=== PATIENT | male | born 1960 | race Caucasian/White ===

== ENCOUNTER 2023-07-30 08:53 | Outpatient (REF) | payer OTHER, SELFPAY ==
[2023-07-30 12:33] LABS: Cholesterol 246 mg/dL (<200); HDL Cholesterol 53 mg/dL (>40); LDL Cholesterol Calculated 165 mg/dL (<100); Triglycerides 144 mg/dL (<150)
== END 2023-07-30 08:54 | disposition home or self-care (01) ==
LOC: HO.HHCL 08:53
PROVIDERS: Visit Provider Registered Nurse
DX: E78.5 Hyperlipidemia, unspecified (principal); E66.3 Overweight
CPT/HCPCS: 36415; 80061

== ENCOUNTER 2024-01-22 08:39 | Outpatient (REF) | payer OTHER, SELFPAY ==
[2024-01-22 11:51] LABS: Cholesterol 135 mg/dL (<200); HDL Cholesterol 44 mg/dL (>40); LDL Cholesterol Calculated 74 mg/dL (<100); Triglycerides 85 mg/dL (<150)
== END 2024-01-22 08:40 | disposition home or self-care (01) ==
LOC: HO.HHCL 08:39
PROVIDERS: Visit Provider Nurse Practitioner Family
DX: E78.5 Hyperlipidemia, unspecified (principal)
CPT/HCPCS: 36415; 80061

== ENCOUNTER → 2024-02-03 12:43 | Outpatient (REF) | payer OTHER, SELFPAY ==
--- NOTE | 2024-02-03 12:52 | CA_ITS ---
Transthoracic Echocardiogram Patient (Last, First, Middle): Mac Rodriges, Gender: Male Date of : 1960 Age: 63 Procedure Date: 02/03/2024 Procedure Type: Transthoracic Echocardiogram Location: OP Height: 167.64 cm Weight: 81.65 kg BSA: 1.91 m2 Heart Rate: bpm BP: 118 / 60 mmHg Undercollar Maker: Referring MD: Sydnee Dhillon MD Symptoms: SYNCOPAL EPISODES, Study Quality: Good ECG Rhythm: Sinus Conclusions: - The left ventricular systolic function is normal. The calculated ejection fraction is 59% by biplane method. - No obvious valvular pathology seen on this study. Findings Left Ventricle Normal left ventricular cavity size. There is normal left ventricular wall thickness. The left ventricular systolic function is normal. The calculated ejection fraction is 59% by biplane method. There is no evidence of regional wall motion abnormalities. Diastolic function is normal for age. Right Ventricle Mildly increased right ventricular cavity size. There is normal right ventricular systolic function. Atria Both atria are normal in size. Aortic Valve There is a normal trileaflet aortic valve. There is no aortic valve stenosis. There is trace (trivial) aortic valve regurgitation. Mitral Valve The mitral valve appears normal. There is trace mitral valve regurgitation. There is no mitral valve stenosis. Pulmonic Valve There is trace pulmonic valve regurgitation. Tricuspid Valve Normal tricuspid valve structure. There is trace tricuspid valve regurgitation. There is no evidence of pulmonary hypertension. Great Vessels The asc aorta is normal in size. Venous The inferior vena cava is normal in size and collapses greater than 50% with inspiration. Pericardium/Pleural There is no evidence of pericardial effusion. Prior Study Comparison No prior study available for comparison. Recommendations, Care & Conclusions No obvious valvular pathology seen on this study. Measurements 2D Linear Measurements IVSd: 1.01 0.6-0.9/0.6-1.0 cm LVIDd: 4.74 3.9-5.3/4.2-5.9 cm LVIDd Index: 2.48 2.4-3.2/2.2-3.1 cm/m2 LVIDs: 2.65 2.0-3.6 cm LVPWd: 1.08 0.7-1.1 cm Ao Root: 3.50 2.1-3.5 cm LA Diam: 3.20 2.7-3.8/3.0-4.0 cm LAIDs Index: 1.68 1.5-2.3 cm/m2 LV Mass: 220.60 67-162/88-224 g LV Mass Index: 115.50 43-95/49-115 g/m2 LVOT Diam: 2.30 3.0+(-)1.3 cm 2D Systolic Function EF 4C: 62.70 >55% EF 2C: 56.80 >55% EF BiP: 59.30 >55% Mitral Valve MV Pk E: 0.81 MV PK A: 0.72 MV Decel Time: 223.00 E/A: 1.10 E'Lateral: 12.40 E'Medial: 8.05 E/E' Med: 10.00 E/E' Lat: 6.50 PHT: 66.00 MVA PHT: 3.33 Decel [place]: 3.61 Aortic Valve AoV Pk Harvey: 1.65 AoV Mn Harvey: 0.95 AoV VTI: 0.38 AoV Pk Grad: 11.00 Aov Mn Grad: 5.00 CARLY Cont.VTI: 2.96 LVOT LVOT Pk Harvey: 1.23 LVOT Mn Harvey: 0.77 LVOT VTI: 0.27 LVOT Pk Grad: 6.00 LVOT Mn Grad: 3.00 LVOT Diam: 2.30 LVOT Area: 4.15 Diastolic Function MV Pk E: 0.81 MV Pk A: 0.72 E/A: 1.10 E'Medial: 8.05 E/E' Med: 10.00 E' Laterial: 12.40 E/E' Lat: 6.50 Right Ventricle TAPSE (mm): 27.00 Tricuspid Valve TR Pk Harvey: 2.32 TR Pk Grad: 22.00 RA Press: 3.00 RVSP: 25.00 Great Vessels Aorta Ao Root-2D: 3.50 2.0-3.7 cm Ao Asc: 3.40 2.1-3.4 cm Pulmonary Valve PV Pk Harvey: 0.99 Peak PV Grad: 4.00 Updated in Other Vendor System with Status of Final Curt Hernández MD electronically signed on 02/04/2024 11:43:33 AM with status of Final
--- NOTE | 2024-02-03 12:52 | HM_ITS ---
Conclusion: 1. Patient was monitored for total period of 1 day and 23 hours 2. Baseline was normal sinus rhythm with average heart of 71 beats per minute 3. No significant pauses noted 4. Rare PACs noted 5. Occasional PVCs noted with total burden of 0.5% 6. To supraventricular tachycardia episode noted, fastest at 150 beats per minute and longest at 11 beats 7. No patient reported events MTDD
== END ==
LOC: HO.CARD 12:43
PROVIDERS: PCP Nurse Practitioner Family; Visit Provider Internal Medicine
DX: R55 Syncope and collapse (principal)
CPT/HCPCS: 93225; 93306

== ENCOUNTER → 2024-02-03 12:52 | Outpatient (BNV) | payer OTHER, SELFPAY | PROVIDERS: PCP Nurse Practitioner Family; Visit Provider Internal Medicine | DX: R55 Syncope and collapse (principal) | CPT/HCPCS: 93227; 93306 ==

== ENCOUNTER 2024-06-17 09:22 | Outpatient (REF) | payer OTHER, SELFPAY ==
[2024-06-17 11:33] LABS: Cholesterol 188 mg/dL (<200); HDL Cholesterol 61 mg/dL (>40); LDL Cholesterol Calculated 106 mg/dL (<100); Triglycerides 105 mg/dL (<150)
== END 2024-06-17 09:23 | disposition home or self-care (01) ==
LOC: HO.HHCL 09:22
PROVIDERS: Visit Provider Nurse Practitioner Family
DX: E78.5 Hyperlipidemia, unspecified (principal)
CPT/HCPCS: 36415; 80061

== ENCOUNTER 2025-03-04 09:28 | Outpatient (REF) | payer OTHER, SELFPAY ==
--- OUTSIDE RECORDS SUMMARY | 2025-03-04 09:58 | XMS_ITS | Encounter Summary ---
Author Organization [employer] [facility] Address [address] [place] [address] Care Team Providers Care Senior Software Development Engineer Name Role Phone Steve Pugh Primary Care Provider Jose Manuel Bennett Primary Care Provider Tanya MarquisP Primary Care Provider [phone] Va Cannon NP Primary Care Provider [phone] Encounter Details Date Type Department Care Team (Latest Contact Info) Description 07/31/2022 Abstract [facility] CONVERSIONS Dental, Provider, DDS Social History Tobacco Use Types Packs/Day Years Used Date Smoking Tobacco: Never Assessed Sex and Gender Information Value Date Recorded Sex Assigned at Male 09/16/2022 10:32 AM EDT Legal Sex Male 10:32 AM EDT Gender Identity Male 09/16/2022 10:32 AM EDT Sexual Orientation Choose not to disclose 2021 10:32 AM EDT documented as of this encounter Plan of Treatment Upcoming Encounters Date Type Department Care Team ( st Contact Info) Description 03/04/2025 10:30 AM EDT Office Visit [facility] ADULT DENTAL [address] [place] [address] Sanders-Davila, Jolanta, DDS [address] [place] [address] documented as of this encounter Visit Diagnoses Not on filedocumented in this encounter Care Teams Senior Software Development Engineer Relationship Specialty Start Date End Date Steve Pugh FNP PCP - General Family Medicine 12/12/22 01/15/23 Jose Manuel Medina AGNP PCP - General Family Medicine 01/16/23 08/06/23 Tanya Allison FNP [address] [place] [address] PCP - General Family Medicine 08/07/23 07/19/24 Va Cannon NP [address] [place] [address] PCP - General Family Medicine 07/20/24 documented as of this encounter
--- OUTSIDE RECORDS SUMMARY | 2025-03-04 09:58 | XMS_ITS | Clinical Summary ---
Author Organization [employer] Address [address] [facility] [address] [place] [address] Care Team Providers Care Firearms Assembly Supervisor Name Role Phone Va Cannon DINO Primary Care Provider [phone] Allergies No known active allergies Medications amLODIPine (Norvasc) 5 MG tabletIndication s:Essential hypertension TAKE 1 TABLET BY MOUTH EVERY DAY 90 tablet 3 02/26/20 25 Active amLODIPine (Norvasc) 5 MG tabletIndication s:Essential hypertension TAKE 1 TABLET BY MOUTH EVERY DAY 90 tablet 3 03/17/20 24 025 Discontinued(Re order (will not trigger notification to Pharmacy)) rosuvastatin (Crestor) 10 MG tabletIndication s:Dyslipidemia Take 1 tablet (10 mg) by mouth Once per day. 30 tablet 11 03/17/20 24 025 Discontinued(Me d list cleanup (will not trigger notification to Pharmacy)) Active Problems Problem Noted Date Diagnosed Date Dental calculus 06/02/2024 Periodontal disease 06/02/2024 Missing teeth, acquired 06/02/2024 Generalized gingival recession 06/02/2024 Watery eyes 06/27/2023 Assessment & Plan (06/27/2023 1:03 PM EDT): Wears contacts sparingly, once every few months or so to read small print. Does not wear glasses. Reports this happens for a few months out of the year. DDx: seasonal allergies Patient was not interested in allergy medication. He was interested in a referral to optometry though. Acute pain of left shoulder 04/04/2023 Assessment & Plan (04/04/2023 11:50 AM EDT): It seems like patient irritated his supraspinatus and subscapularis muscle due to exam findings. No trauma reported, he slept on it wrong. Instructed OTC NSAIDs and cyclobenzaprine 10 days flexeril, instructed patient to take them 3 times a day PRN. Essential hypertension 03/05/2023 Assessment & Plan (02/25/2025 2:22 PM EDT): -BP at target goal of <130/80 mmHg -continue amlodipine 5 mg -microalbumin: ordered today -ASCVD risk: 10.5 % based on lipid levels obtained in 2022 -daily BP monitoring advised -low salt diet and 30 min moderate intensity daily exercise recommended -Reviewed ED precautions to include chest pain, shortness of breath, severe headache, sudden vision changes or BP >=180/>=120 mmHg. -Call clinic if three or more BP readings >130/80 mmHg. -referral for eye exam placed -follow-up 4 months Assessment & Plan (06/27/2023 12:58 PM EDT): 138/90 before leaving, Counseled low-salt diet, advised increase in exercise to 30 min/ day most days, weight loss if applicable. Call clinic for high BP >170/90 or low <90/60. Assessment & Plan (04/16/2023 2:02 PM EDT): Patients home blood pressure readings are inside of JNC 8 guideline: recommendation 1; a corollary recommendation is that patients whose achieved SBP on pharmacologic therapy is lower than the new guideline recommendation can be continued at that level of therapy , if well tolerated for his age group >60. Although I do have concerns about his diastolic BP, he does fall within JNC-8 guidelines. He and his are interested in improving their lifestyles (diet, exercise) so we discussed meeting in 3 months to review his BP and also his lipid panel ( as of 03/13 his LDL was 207). Discussed diet and exercise and gave DASH diet handout. Continue to monitor blood pressure 2 or 3 times a week F/up 3 months for HTN Assessment & Plan (03/05/2023 4:18 PM EDT): Patient requested a refill of his amlodipine. Blood pressure was 143/96 when he got here and is now 151/99. He was requesting to stop taking his BP medication because he does not like taking meds. We talked about how chronic elevated blood pressure can be very dangerous. He acknowledge and said he understood. I gave patient a BP log he is to return in 2 weeks for a BP check and a potential increase in amlodipine. Routine adult health maintenance 03/05/2023 Dyslipidemia 11/11/2018 Assessment & Plan (02/25/2025 2:23 PM EDT): -patient self discontinued crestor. Reports he is managing with lifestyle and dietary changes. -repeat labs ordered today Assessment & Plan (04/04/2023 12:14 PM EDT): Component Ref Range & Units 2 wk ago 1 yr ago Cholesterol, Total <200 mg/dL 294??High?? 265??High?? HDL Cholesterol > OR = 40 mg/dL 60 51 Triglycerides <150 mg/dL 128 126 LDL Cholesterol mg/dL (calc) 207??High?? 188??High?? CM The 10-year ASCVD risk score (Gopal NIXON, et al., 2019) is: 14.7% Values used to calculate the score: Age: 63 years Sex: Male Is Non- : No Diabetic: No Tobacco smoker: No Systolic Blood Pressure: 143 mmHg Is BP treated: No HDL Cholesterol: 60 mg/dL Total Cholesterol: 294 mg/dL Mac is not big on taking pills. We had a big discussion about why he needs to stay on his BP medication (which he was trying to get off of). I told him today (gave DASH handout) that we would check his lipids again in 3 months after he and his had worked on his diet and exercise. Once we look at next lipid panel I will make a suggestion to him whether he needs to take a statin or not. Assessment & Plan (03/05/2023 4:12 PM EDT): He stopped taking this atorvastatin a year ago because he felt healthy. We had a talk about how we cant feel the content of our blood such as fats and cholesterol. He completley understood and said that stopping may have been a mistake. Lipid panel ordered, patient to follow up in two weeks to address HLD. Overweight 11/11/2018 Assessment & Plan (02/25/2025 2:22 PM EDT): Dietary Recommendations: Fruits, vegetables, whole grains, protein foods, and fat-free or low-fat dairy products are healthy choices. Eat different types of protein foods in your diet. This can include seafood, lean meats, poultry, beans, peas, lentils, nuts, seeds, soy products, and eggs. Limit foods and beverages higher in added sugars, saturated fat, and sodium. Exercise Recommendations: At least 150 minutes of moderate-intensity physical activity per week, or an equivalent combination of moderate- and vigorous-intensity activity Assessment & Plan (03/05/2023 4:23 PM EDT): Discussed diet and exercise. Encounters Date Type Department Care Team Description 02/25/2025 1:00 PM EDT Office Visit [facility] [address] [place] [phone] Va Cannon NP Encounter to establish care (Primary Dx); Essential hypertension; Dyslipidemia; Snoring; Dietary counseling; Exercise counseling; Overweight 02/25/2025 Travel 02/22/[address] [address] Viktor Lao MA chartprep 02/02/2025 8:00 AM EDT Office Visit [facility] ADULT DENTAL [address] [place] [address] Ignacia Hope Dental calculus (Primary Dx); Dental plaque 01/25/2025 Telephone [facility] ADULT DENT[facility] [address] [place] [address] Vladimir Rae DDS 01/06/2025 Telephone [facility] [address] [place] [address] Viktor Lao [place] November recall from Last 3 Months Immunizations Name Administration Dates Next Due Influenza injectable quadriv alent IIV4 with preservative 08/12/2018 Family History Medical History Relation Name Comments No Known Problems Father No Known Problems Mother Relation Name Status Comments Father Mother Social History Tobacco Use Types Packs/Day Years Used Date Smoking Tobacco: Never Smokeless Tobacco: Never Tobacco Cessation:Counseling Given: Not Answered Alcohol Use Standard Drinks/Week Comments Yes 0 (1 standard drink = 0.6 oz pure alcohol) ocassionally about 1 weekend a month Alcohol Answer Date Recorded How often do you have a drink containing alcohol ? 1 02/25/2025 How many drinks containing a lcohol do you have on a typical day when you are drinking? 0 02/25/2025 How often do you have six or more drinks on one occasion? 0 02/25/2025 Depression Answer Date Recorded Patient Health Questionnaire-9 Score 0 03/17/2024 Patient Health Questionnaire-9 Score 0 03/17/2024 Last PHQ-9: Questionnaire Data Not on file 0 03/17/2024 Housing Stability Answer Date Recorded What is your housing situation today? I have katie norton 02/25/[address] you li ve. Do you have problems with any of the following? None of the above 02/25/2025 Food Insecurity Answer Date Recorded Within the past 12 months, y ou worried that your food would run out before you got money to buy more: Never True 02/25/2025 Within the past 12 months,th e food you bought just didn't last and you didn't have enough money to get more: Never True 09/2025 Transportation Answer Date Recorded In the past 12 months, has l ack of transportation kept you from medical appts, meetings, work or from getting things needed for daily living? No 02/25/2025 Utilities Answer Date Recorded In the past 12 months, has t he electric, gas, oil or water company threatened to shut off services in your home? No 02/25/2025 Depression Answer Date Recorded Patient Health Questionnaire-2 Score 0 03/17/2024 Internet Access Answer Date Recorded Internet Access Q1 Yes 02/25/2025 Internet Access Q2 Not on file 02/25/2025 Sex and Gender Information Value Date Recorded Sex Assigned at Male 09/16/2022 10:32 AM EDT Legal Sex Male 10:32 AM EDT Gender Identity Male 09/16/2022 10:32 AM EDT Sexual Orientation Choose not to disclose 2021 10:32 AM EDT Last Filed Vital Signs Vital Sign Reading Time Taken Comments Blood Pressure 120/82 02/25/2025 1:55 PM EDT Pulse 58 02/25/2025 1:15 PM EDT Temperature 35.2 ??C (95.4 ??F) 02/25/2025 1:15 PM ED T Respiratory Rate 13 02/25/2025 1:15 PM EDT Oxygen Saturation 98% 02/25/2025 1:15 PM EDT Inhaled Oxygen Concentration - - Weight 84 kg (185 lb 3.2 oz) 02/25/2025 1:15 PM EDT Height 167.6 cm (5' 6 ) 02/25/2025 1:15 PM EDT Body Mass Index 29.89 02/25/2025 1:15 PM EDT Plan of Treatment Upcoming Encounters Date Type Department Care Team (Late st Contact Info) Description 03/04/2025 10:30 AM EDT Office Visit [facility] ADULT DENTAL [address] [place] [address] Jolanta Ledesma, DDS [address] [place] [address] Health Maintenance Due Date Last Done Comments CT Colonography 1960 Colonoscopy 1960 Colorectal Cancer Screening 1960 FIT DNA/Cologuard 1960 FIT 1960 FOBT 1960 HIV Screening 1960 Sigmoidoscopy 1960 Hepatitis C Screening 1979 DTaP/Tdap/Td Vaccines (1 - Tdap) 02/14/1980 Pneumococcal Vaccine: 50+ Years (1 of 1 - PCV) 2011 Zoster Vaccines (1 of 2) 2011 Dental Oral Exam 2023 08/15/2022, , 08/12/2019, Additional history exists Dental X-Ray: Bitewings 08/01/2023 07/31/20 22, 04/03/2021, 06/30/2019, Additional history exists COVID-19 Vaccine ( season) 2024 09/20/2021, 08/30/2021 Influenza Vaccine (#1) 2024 08/12/2018 Depression Screening 03/17/2025 03/17/2024, 03/17/20 Dental X-Ray: Full Mouth 08/01/2025 07/31/2022, 06/2018 Dental Prophylaxis 08/06/2025 02/02/2025, 0 06/02/2024, 07/31/2022, Additional history exists Alcohol/Substance Use Screening 02/25/2026 02/25/2025 SDOH Screening 02/25/2026 02/25/2025 Tobacco Screening 02/25/2026 02/25/2025 Lipid Panel 06/17/2029 06/17/2024, 0305/2024, 07/30/2023, Additional history exists RSV Patients and Patients Aged 60 years or older (1 - 1-dose 75+ series) 02/14/2036 HIB Vaccines Aged Out No longer eligi ble based on patient's age to complete this topic HPV Vaccines Aged Out No longer eligi ble based on patient's age to complete this topic Hepatitis A Vaccines Aged Out No long er eligible based on patient's age to complete this topic Hepatitis B Vaccines Aged Out No long er eligible based on patient's age to complete this topic IPV Vaccines Aged Out No longer eligi ble based on patient's age to complete this topic Meningococcal Vaccine Aged Out No nkechi polly eligible based on patient's age to complete this topic RSV under 20 months Aged Out No longe r eligible based on patient's age to complete this topic Rotavirus Vaccines Aged Out No longer eligible based on patient's age to complete this topic Procedures Procedure Name Priority Date/Time Associated Diagnosis Comments PROPHYLAXIS - ADULT Routine 02/02/2025 8 :00 AM EDT Dental calculus Dental plaque LIPID PANEL, STANDARD Routine 06/17/2024 9:25 AM EDT Dyslipidemia PERIODIC ORAL EVALUATION - ESTABLISHED PATIENT Routine 08/15/2022 12:00 AM EDT INTRAORAL - COMPLETE SERIES OF RADIOGRAPHIC IMAGES Routine 07/31/2022 12:00 AM EDT from Last 3 Months or Most Recently Relevant to Health Maintenance Results * (ABNORMAL) Lipid Panel, Standard (06/17/2024 9:25 AM EDT) Triglycerides 105 <150 mg/dL [facility] Comment:Desirable Triglyceri de: less than 150 mg/dLBorderline High Triglyceride 150-199 mg/dLHigh Triglyceride: 200-499 mg/dLVery High Triglyceride: greater than or equal to 5OO mg/dL Cholesterol 188 <200 mg/dL [facility] Comment:Desirable Cholestero l: less than 200 mg/dLBorderline High Cholesterol: 200-239 mg/dLHigh Cholesterol: greater than 239 mg/dL LDL Cholesterol Calculated 106(H) <100 mg/dL [facility] Comment:Desirable LDL: less than 100 mg/dLNear Optimal/Above Optimal LDL: 110- 129 mg/dLBorderline High LDL: 130-159 mg/dLHigh LDL: 160-189 mg/dLVery High LDL: greater than or equal to 190 mg/dL HDL Cholesterol 61 >40 mg/dL [facility] Comment:Desirable HDL: great er than 40 mg/dL Note: This HDL assay may give artificially low results in patients with liver disease. Blood Venous blood specimen / Unknown 06/17/2024 9:25 AM EDT 06/17/2024 11:03 AM EDT us Tanya Allison [facility]TA[facility] LAB BLOOD ORDERABLES Final Resu lt [facility] [address] [place] [address] [phone] from Last 3 Months or Most Recently Relevant to Health Maintenance Insurance HSN PARTIAL [facility] DENTAL [facility] DENTAL - HSN PARTIAL (MEDICAID) Care Teams Firearms Assembly Supervisor Relationship Specialty Start Date End Date Va Cannon NP [address] [place] [id number] PCP - General Family Medicine 07/20/24
--- OUTSIDE RECORDS SUMMARY | 2025-03-04 09:58 | XMS_ITS | Encounter Summary ---
Author Organization [facility] [facility] Address [address] [place] [address] Care Team Providers Care Web Feeder Name Role Phone Steve Pugh Primary Care Provider Jose Manuel Bennett Primary Care Provider Tanya MarquisP Primary Care Provider [phone] Va Cannon NP Primary Care Provider [phone] Encounter Details Date Type Department Care Team (Latest Contact Info) Description 01/05/2020 Abstract [facility] CONVERSIONS Dental, Provider, DDS Social History Tobacco [...] Description 03/04/2025 10:30 AM EDT Office Visit [facility] ADULT DENTAL [address] [place] [address] Sandres-Davila, Jolanta, DDS [address] [place] [address] documented as of this encounter Visit Diagnoses Not on filedocumented in this encounter Care Teams Web Feeder Relationship Specialty Start Date End Date Steve Pugh FNP PCP - General Family Medicine 12/12/22 01/15/23 Jose Manuel Medina AGNP PCP - General Family Medicine 01/16/23 08/06/23 Tanya Allison FNP [address] [place] [address] PCP - General Family Medicine 08/07/23 07/19/24 Va Cannon NP [address] [place] [address] PCP - General Family Medicine 07/20/24 documented as of this encounter
--- OUTSIDE RECORDS SUMMARY | 2025-03-04 09:58 | XMS_ITS | Encounter Summary ---
Author Organization [employer] Address [address] [place] [address] Care Team Providers Care Service Counselor Name Role Phone Tanya Allison Primary Care Provider [phone] Va Cannon NP Primary Care Provider [phone] Reason for Visit * Reason Onset Date Comments Med Refill 09/19/2023 Encounter Details Date Type Department Care Team ([facility] st Contact Info) Description 09/19/2023 Telephone [facility] [address] [place] [address] Tanya Allison FNP [address] [place] [address] Med Refill Social History Tobacco Use Types Packs/Day Years Used Date Smoking Tobacco: Never Smokeless Tobacco: Never Alcohol Use Standard Drinks/Week Comments Yes 0 (1 standard drink = 0.6 oz pur e alcohol) ocassionally Depression Answer Date Recorded Patient Health Questionnaire-9 Score 0 03/05/2023 Housing Stability Answer Date Recorded What is your housing situation today? I have katie norton 09/01/[address] you li ve. Do you have problems with any of the following? None of the above 09/01/2023 Food Insecurity Answer Date Recorded Within the past 12 months, y ou worried that your food would run out before you got money to buy more: Never True 09/01/2023 Within the past 12 months,th e food you bought just didn't last and you didn't have enough money to get more: Never True Transportation Answer Date Recorded In the past 12 months, has l ack of transportation kept you from medical appts, meetings, work or from getting things needed for daily living? No 09/01/2023 Utilities Answer Date Recorded In the past 12 months, has t he electric, gas, oil or water company threatened to shut off services in your home? No 09/01/2023 Depression Answer Date Recorded Patient Health Questionnaire-2 Score 0 03/05/2023 Sex and Gender Information Value Date Recorded Sex Assigned at Male 09/16/2022 10:32 AM EDT Legal Sex Male 10:32 AM EDT Gender Identity Male 09/16/2022 10:32 AM EDT Sexual Orientation Choose not to disclose 2021 10:32 AM EDT documented as of this encounter Miscellaneous Notes * Telephone Encounter - Vernoique Staples LPN - 09/19/2023 3:33 PM EDT Medication pended to PCP. * Telephone Encounter - Marilee Garcia - 09/19/2023 3:25 PM EDT Tc from pt requesting med refill on amLODIPine (Norvasc) 5 MG tablet documented in this encounter Plan of Treatment Upcoming Encounters Date Type Department Care Team (Late st Contact Info) Description 03/04/2025 10:30 AM EDT Office Visit [facility] ADULT DENTAL [address] [place] [address] Jolanta Ledesma, DDS [address] [place] [address] documented as of this encounter Visit Diagnoses Not on filedocumented in this encounter Additional Health Concerns Assessment Noted Time PHQ-9 Depression Total Score: 0 03/05/20 3:07 PM EDT documented as of this encounter Care Teams Service Counselor Relationship Specialty Start Date End Date Tanya Allison FNP [address] [place] [address] PCP - General Family Medicine 08/07/23 07/19/24 Va Cannon NP [address] [place] [id number] PCP - General Family Medicine 07/20/24 documented as of this encounter
--- OUTSIDE RECORDS SUMMARY | 2025-03-04 09:58 | XMS_ITS | Encounter Summary ---
Author Organization [facility] [facility] Address [address] [place] [address] Care Team Providers Care Onion Topper Name Role Phone Steve Pugh Primary Care Provider Jose Manuel Bennett Primary Care Provider Tanya MarquisP Primary Care Provider [phone] Va Cannon NP Primary Care Provider [phone] Encounter Details Date Type Department Care Team (Latest Contact Info) Description 04/03/2021 Abstract [facility] CONVERSIONS Dental, Provider, DDS Social History [...] Description 03/04/2025 10:30 AM EDT Office Visit [facility] ADULT DENTAL [address] [place] [address] Sanders-Davila, Jolanta, DDS [address] [place] [address] documented as of this encounter Visit Diagnoses Not on filedocumented in this encounter Care Teams Onion Topper Relationship Specialty Start Date End Date Steve Pugh FNP PCP - General Family Medicine 12/12/22 01/15/23 Jose Manuel Medina AGNP PCP - General Family Medicine 01/16/23 08/06/23 Tanya Allison FNP [address] [place] [address] PCP - General Family Medicine 08/07/23 07/19/24 Va Cannon NP [address] [place] [address] PCP - General Family Medicine 07/20/24 documented as of this encounter
--- OUTSIDE RECORDS SUMMARY | 2025-03-04 09:58 | XMS_ITS | Encounter Summary ---
Author Organization [employer] [facility] Address [address] [place] [address] Care Team Providers Care Front End Developer Designer Name Role Phone Steve Pugh Primary Care Provider Jose Manuel Bennett Primary Care Provider Tanya MarquisP Primary Care Provider [phone] Va Cannon NP Primary Care Provider [phone] Encounter Details Date Type Department Care Team (Latest Contact Info) Description 06/30/2019 Abstract [facility] ADULT D[facility] [address] [place] [address] Sanders-Davila, Jolanta, DDS [address] [place] [address] documented as of this encounter Visit Diagnoses Not on filedocumented in this encounter Care Teams Front End Developer Designer Relationship Specialty Start Date End Date Steve Pugh FNP PCP - General Family Medicine 12/12/22 01/15/23 Jose Manuel Medina AGNP PCP - General Family Medicine 01/16/23 08/06/23 Tanya Allison FNP [address] [place] [address] PCP - General Family Medicine 08/07/23 07/19/24 Va Cannon NP [address] [place] [address] PCP - General Family Medicine 07/20/24 documented as of this encounter
[2025-03-04 11:49] LABS: Anion Gap 9 (12-20); Blood Urea Nitrogen 16 mg/dL (9-16); Calcium 9.1 mg/dL (8.4-10.2); Carbon Dioxide 29 mmol/L (22-29); Chloride 106 mmol/L (96-108); Cholesterol 291 mg/dL (<200); Estimated Glomerular Filt Rate > 60; Glucose Random 97 mg/dL (60-115); HDL Cholesterol 53 mg/dL (>40); LDL Cholesterol Calculated 190 mg/dL (<100); Potassium 3.7 mmol/L (3.3-5.1); Sodium 140 mmol/L (135-145); Triglycerides 244 mg/dL (<150)
[2025-03-04 12:11] LABS: Creatinine Urine 179.58 mg/dL; Microalbum/Creatinine Ratio Ur 13.9 ug/mg cr (<30)
== END 2025-03-04 09:29 | disposition home or self-care (01) ==
LOC: HO.HHCL 09:28
PROVIDERS: Visit Provider Nurse Practitioner
DX: I10 Essential (primary) hypertension (principal); E78.5 Hyperlipidemia, unspecified
CPT/HCPCS: 36415; 80048; 80061; 82043; 82570

== ENCOUNTER 2025-04-29 11:38 | Outpatient (REF) | payer SELFPAY ==
--- OUTSIDE RECORDS SUMMARY | 2025-04-29 12:37 | XMS_ITS | Encounter Summary ---
Author Organization [employer] Address [address] [place] [address] Care Team Providers Care Greenkeeper Name Role Phone LexySteve LEAD PROJECT MANAGER Primary Care Provider Jose Manuel Bennett AGNBobby Primary Care Provider Tanya Marquis LEAD PROJECT MANAGER Primary Care Provider [phone] Va Cannon NP Primary Care Provider [phone] Encounter Details Date Type Department Care Team (Latest Contact Info) Description 01/05/2020 Abstract [facility] CONVERSIONS Dental, Provider, DDS Social History Tobacco [...] Care Team (Late st Contact Info) Description 05/30/2025 10:00 AM EDT Office Visit [facility] MEDICINE [address] [place] [address] Va Cannon NP [address] [place] [address] 06/30/2025 1:30 PM EDT Office Visit [facility] OPTOMETRY [address] [place] [address] Jimmy, Desiree, OD [address] [place] [address] documented as of this encounter Visit Diagnoses Not on filedocumented in this encounter Care Teams Greenkeeper Relationship Specialty Start Date End Date Steve Pugh FNP PCP - General Family Medicine 12/12/22 01/15/23 Jose Manuel Medina AGNP PCP - General Family Medicine 01/16/23 08/06/23 Tanya Allison FNP [address] [place] [address] PCP - General Family Medicine 08/07/23 07/19/24 Va Cannon NP [address] [place] [address] PCP - General Family Medicine 07/20/24 documented as of this encounter
[2025-04-29 13:25] LABS: Alanine Aminotransferase 36 U/L (0-40); Albumin Level 4.3 g/dL (3.5-5.0); Alkaline Phosphatase 91 U/L (39-117); Aspartate Amino Transferase 25 U/L (5-37); Bilirubin Direct 0.1 mg/dL (0.0-0.5); Bilirubin Total 0.4 mg/dL (0.0-1.0)
== END 2025-04-29 11:39 | disposition home or self-care (01) ==
LOC: HO.HHCL 11:38
PROVIDERS: Visit Provider Nurse Practitioner
DX: E78.5 Hyperlipidemia, unspecified (principal)
CPT/HCPCS: 36415; 80076

== ENCOUNTER 2025-05-03 08:08 | Outpatient (REF) | payer OTHER, SELFPAY ==
[2025-05-03 12:04] LABS: Cholesterol 283 mg/dL (<200); HDL Cholesterol 57 mg/dL (>40); LDL Cholesterol Calculated 191 mg/dL (<100); Triglycerides 177 mg/dL (<150)
== END 2025-05-03 08:09 | disposition home or self-care (01) ==
LOC: HO.HHCL 08:08
PROVIDERS: PCP Nurse Practitioner; Visit Provider Nurse Practitioner
DX: E78.5 Hyperlipidemia, unspecified (principal)
CPT/HCPCS: 36415; 80061